=== PATIENT | female | born 2000 | race Caucasian/White ===

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

== ENCOUNTER 2023-05-14 18:53 | Emergency (ER) | payer BC, SELFPAY ==
[2023-05-14 19:06] VITALS: BP 105/44; PULSE 82; RESP 18; TEMP 36.3; O2SAT 100
--- NOTE | 2023-05-14 19:40 | ED.URI ---
HPI - URI/Sore Throat General Chief Complaint: Upper Respiratory Infection Stated Complaint: sorethroat,headache Time Seen by Provider: 05/14/23 19:31 Source: patient and RN notes reviewed Mode of arrival: ambulatory Limitations: no limitations History of Present Illness HPI Narrative: Patient presents today complaining of sore throat and headache since yesterday. Denies any additional symptoms to include fever and shortness of breath. She took a home COVID test that was negative. Currently rates her pain 3/10 and has been taking TheraFlu with some relief. 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 Related Data Home Medications Medication Instructions Recorded Confirmed drospiren-e.estrad-l.mefol 3 1 tablet PO DAILY 08/10/20 05/14/23 mg-0.02 mg-0.451 mg(24)/0.451 mg(4)tablet Allergies Allergy/AdvReac Type Severity Reaction Status Date / Time No Known Allergies Allergy Verified 05/14/23 19:17 Review of Systems Review of Systems: CONSTITUTIONAL: Denies body aches, fever, chills, or sweats. EYES: Denies visual changes, redness, or discharge. ENT: Denies rhinorrhea, congestion, or otalgia.+ sore throat CARDIOVASCULAR: Denies chest pain, palpitations, or edema. RESPIRATORY: Denies cough or dyspnea. GASTROINTESTINAL: Denies abdominal pain, nausea, vomiting, or diarrhea. GENITOURINARY: Denies dysuria or hematuria. SKIN: Denies rash, itching, or wounds. MUSCULOSKELETAL: Denies back pain, joint pain, or myalgia. NEUROLOGIC: Denies numbness, tingling, or weakness.+ headache PSYCH: Denies depression or anxiety. [facility] Past Medical History Medical History Post-tonsillectomy hemorrhage Surgical History Surgical History Hx of tonsillectomy Family History Family History Other Diabetes mellitus Family history of arthritis Family history of gout Family history of heart disease in male family member before age 55 Hypertension Social History Social History Smoking status: Never smoker Second hand tobacco smoke exposure: No Alcohol intake: never Substance use: never Living arrangements: with family Gender identity (if verbalized by the patient): Female Sexual Orientation (if Verbalized by the Patient): Straight or Heterosexual Spiritual care concerns: No Comments At time of signature, I have reviewed and agree with nursing past medical, surgical, social and family history unless otherwise noted. Please see nursing chart for further information. There is no relevant family history pertinent to the presenting complaint Exam Narrative: GENERAL: Mildly ill-appearing, well-nourished, and in no acute distress. HEAD: Normocephalic, atraumatic. EYES: EOMI. No redness or drainage. Conjunctivae normal. ENT: Mucous membranes pink and moist. Nares clear. No rhinorrhea. TMs normal bilaterally. Throat mildly erythematous with large amount of postnasal drainage. Uvula midline. NECK: Normal AROM. Supple. No lymphadenopathy. CHEST: No respiratory distress. Clear to auscultation. HEART: Regular rate and rhythm. No murmur appreciated. EXTREMITIES: Normal range of motion. No edema. SKIN: Warm, dry, no rash. Capillary refill normal. Normal skin turgor. NEURO: No focal deficits. Alert and oriented x3. Gait steady. PSYCH: Normal affect. No signs of depression or anxiety. Course Course Level of Care: Express Care Visit Vital Signs Vital signs: Vital Signs Temperature 97.3 F L 05/14/23 19:06 Pulse Rate 82 05/14/23 19:06 Respiratory Rate 18 05/14/23 19:06 Blood Pressure 105/44 L 05/14/23 19:06 Pulse Oximetry 100 05/14/23 19:06 O
== END 2023-05-14 19:58 | disposition home or self-care (01) ==
PROVIDERS: Emergency Provider Nurse Practitioner; PCP Nurse Practitioner Family
DX: J02.9 Acute pharyngitis, unspecified (principal)
CPT/HCPCS: 87081; 87880; 99213; G0463

== ENCOUNTER → 2023-05-18 12:43 | Outpatient (CLI) | payer BC, SELFPAY ==
--- NOTE | ~2023-05-18 | US_ITS ---
EXAMINATION: US pelvic complete w TV DATE: 05/18/2023 13:14 INDICATION: Pelvic and perineal pain Comparison:No prior studies for comparison. TECHNIQUE: Multiple transabdominal and endovaginal sonographic images of the pelvis performed. FINDINGS: The uterus measures 7 x 3.2 x 4.5 cm. The endometrial complex measures 4 mm. The right ovary measures 2.5 x 2.4 x 1.4 cm and the left ovary measures 2.3 x 2.3 x 1.8 cm. There ar e small follicles in each ovary. Normal doppler signal in both ovaries. There is no free fluid in the pelvis. There are no abnormal masses seen on either side. IMPRESSION: 1. Unremarkable pelvic ultrasound. Reviewed, dictated and finalized at location B. ILE ENGRAVER
== END ==
PROVIDERS: PCP Obstetrics & Gynecology; Visit Provider Nurse Practitioner Family
DX: R10.2 Pelvic and perineal pain (principal)
CPT/HCPCS: 76830; 76856

== ENCOUNTER 2024-05-11 11:30 | Emergency (ER) | payer OTHER, SELFPAY ==
--- NOTE | ~2024-05-11 | XR_ITS ---
EXAMINATION: XR chest 2V DATE: 05/11/2024 12:22 INDICATION: Productive cough. TECHNIQUE: Frontal and lateral views of the chest were obtained. COMPARISON: None. FINDINGS: There is no pneumonia, pleural effusion, or pneumothorax. The heart size is normal. IMPRESSION: 1. No acute cardiopulmonary disease. Reviewed, dictated and finalized at location A. ISTICS MANAGER
[2024-05-11 11:55] VITALS: BP 90/58; PULSE 112; RESP 18; TEMP 37.1; O2SAT 99
--- NOTE | 2024-05-11 12:09 | ED.URI ---
HPI - URI/Sore Throat General Chief Complaint: Upper Respiratory Infection Stated Complaint: cold symptoms Time Seen by Provider: 05/11/24 12:10 History of Present Illness HPI Narrative: 23 y/o female presented for c/o cough with chest tightness, nasal congestion and pressure. Onset 3 days. Denies sob, wheezing, n/v/d/f/c. Taking otc meds for cough. Related Data Allergies Allergy/AdvReac Type Severity Reaction Status Date / Time No Known Allergies Allergy Verified 05/11/24 12:06 Review of Systems Review of Systems: CONSTITUTIONAL: Denies body aches, fever, chills, or sweats. EYES: Denies visual changes, redness, or discharge. ENT: reports rhinorrhea, congestion, sore throat CARDIOVASCULAR: Denies chest pain, palpitations, or edema. RESPIRATORY: reports cough Denies dyspnea. GASTROINTESTINAL: Denies abdominal pain, nausea, vomiting, or diarrhea. SKIN: Denies rash MUSCULOSKELETAL: Denies back pain, joint pain, or myalgia. [facility] Past Medical History Medical History Post-tonsillectomy hemorrhage Surgical History Surgical History Hx of tonsillectomy Family History Family History Other Diabetes mellitus Family history of arthritis Family history of gout Family history of heart disease in male family member before age 55 Hypertension Social History Social History Smoking status: Never smoker Second hand tobacco smoke exposure: No Alcohol intake: never Substance use: never Living arrangements: with family Gender identity (if verbalized by the patient): Female Sexual Orientation (if Verbalized by the Patient): Straight or Heterosexual Spiritual care concerns: No Exam Narrative: GENERAL: Ill-appearing, nontoxic EYES: conjunctivae clear ENT: Mucous membranes moist. TM pearly jessica with normal light reflex bilaterally; no tragal tenderness. Oropharynx erythematous without lesions. Tonsils absent. No drooling, no hoarseness, no trismus, uvula midline. No tripod positioning, hot potato voice, or soft palate swelling. NECK: Supple. No lymphadenopathy CHEST: Scattered wheeze right lung. No respiratory distress, speaks in full sentences. HEART: Regular rate and rhythm. No murmur heard. SKIN: Warm, dry, no rash. NEURO: Alert and oriented x3. Course Course Emergency Course: Patient is aware of diagnosis, understands and agrees to treatment plan. Anticipatory guidance given. Patient agrees to follow-up as directed and is aware of reasons to seek care at the emergency department. Portions of this record may have been created with voice recognition software Level of Care: Express Care Visit Vital Signs Vital signs: Vital Signs Temperature 98.7 F 05/11/24 11:55 Pulse Rate 112 H 05/11/24 11:55 Respiratory Rate 18 05/11/24 11:55 Blood Pressure 90/58 L 05/11/24 11:55 Pulse Oximetry 99 05/11/24 11:55 Oxygen Delivery Room Air 05/11/24 11:55 Temperature 98.7 F 05/11/24 11:55 Pulse Rate 112 H 05/11/24 11:55 Respiratory Rate 18 05/11/24 11:55 Blood Pressure 90/58 L 05/11/24 11:55 Pulse Oximetry 99 05/11/24 11:55 Oxygen Delivery Room Air 05/11/24 11:55 MDM - URI/Sore Throat MDM Narrative Medical decision making narrative: Neg strep, flu and covid, and CXR results reviewed with pt. Advise supportive treatments. Patient is appropriate for outpatient treatment and follow-up. Differential Diagnosis Differential diagnosis: Likely upper respiratory infection, viral infection and pharyngitis Lab Data Labs: Lab Results 05/11/24 Range/Units 12:13 POC Influenza A Ag Negative (Negative) POC Influenza B Ag Negative (Negative) POC SARS CoV-2 Ag Negative (Negative) POC Grp A Strep Screen Negative (Negative) Imaging Data Radiologist's impression: Patient: Bree Brown : 2000 MR#: [id number] Age: 23 Acct:[id number] Loc: [facility] ADM Date: 05/11/24Attending Dr: Ordering Physician: Shaniqua Coronado APRN Date of Service: 05/11/24 Procedure(s): XR chest 2V Accession Number(s): [id number] cc: Kage, Shaniqua M. PEOPLESOFT CONSULTANT; CALCULATING MACHINE OPERATOR PHYSICIAN~ EXAMINATION: XR chest 2V DATE: 05/11/2024 12:22 INDICATION: Productive cough. TECHNIQUE: Frontal and lateral views of the chest were obtained. COMPARISON: None. FINDINGS: There is no pneumonia, pleural effusion, or pneumothorax. The heart size is normal. IMPRESSION: 1. No acute cardiopulmonary disease. Discharge Plan Discharge Clinical Impression: Bronchitis Patient Disposition: Home, Self-Care Condition: Stable Instructions: Antibiotic Form, Acute Bronchitis (ED) Additional Instructions: Flu and COVID negative. Rapid strep swab was negative today You will be notified in a few days if the culture comes back positive for strep, and appropriate antibiotics will be called in at that time. if symptoms are due to a viral illness, it is not treated with antibiotics. Viral symptoms can be present for up to 10-14 days. Recommendations: Flonase spray and Zyrtec for sinus congestion Cough syrup may cause drowsiness; avoid driving or take it at night time. Tylenol every 8 hours as needed for pain/fever Soft foods, cool liquids, warm tea. Gargle with warm saltwater twice a day. Chloraseptic spray and throat lozenges. Rest and stay hydrated. --Follow up with your PCP --Go to the ER immediately if you cannot swallow your saliva, trouble breathing/wheezing, throat swelling, pain is persistent and severe Prescriptions: New prednisone 20 mg tablet 40 mg PO DAILY 5 Days Qty: 10 0RF Follow-up/Referrals: PHYSICIAN,CALCULATING MACHINE OPERATOR [Primary Care Provider] - Time of Disposition: 12:38
[2024-05-11 12:15] LABS: EDCOVIDSCREEN Negative (Negative); EDINFLUASCREEN Negative (Negative); EDINFLUBSCREEN Negative (Negative); EDSTREPNEGPOS1 Negative (Negative)
== END 2024-05-11 12:39 | disposition home or self-care (01) ==
PROVIDERS: Emergency Provider Nurse Practitioner Family; Referring Provider Emergency Medicine
DX: J40 Bronchitis, not specified as acute or chronic (principal); Z20.822 Contact with and (suspected) exposure to COVID-19
CPT/HCPCS: 71046; 87081; 87426; 87804; 87880; 99213; G0463